=== PATIENT | male | born 1950 | race American Indian/Alaskan Native ===

== ENCOUNTER 2017-02-21 09:05 | Outpatient (CLI) | payer MEDICARE, OTHER ==
--- NOTE | 2017-02-21 12:06 | XRay Report ---
XRAY RIGHT KNEE 3 THREE VIEWS: 02/21/17 09:05:00 CLINICAL: Right knee pain. FINDINGS: No fracture or dislocation. Mild medial joint space osteoarthritis with a narrowing of the joint space and small osteophytes. Subtle bilateral meniscal ossification with extrusion of the menisci from the joint spaces. 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 There appears to be a large knee joint effusion with distention of the suprapatella bursa and anterior suprapatellar and infrapatellar soft tissue edema. IMPRESSION: Large knee joint effusion and prominent anterior suprapatellar and infrapatellar soft tissue edema. Bilateral meniscal chondrocalcinosis. Although there appears to be bilateral meniscal extrusion, radiographic changes of osteoarthritis are minimal.
== END 2017-02-21 09:06 | disposition home or self-care (01) ==
LOC: SPVIMAG 09:05
PROVIDERS: ATTEND Orthopaedic Surgery
DX: M17.11 Unilateral primary osteoarthritis, right knee (principal); M11.261 Other chondrocalcinosis, right knee